=== PATIENT | female | born 1990 | race Caucasian/White ===

== ENCOUNTER 2019-09-17 01:30 | Inpatient (IN) ==
[2019-09-17] MEDS ORDERED: LACTATED RINGER'S 1,000 ML IV PRN (02:01)
[2019-09-17] MEDS ORDERED: OXYTOCIN 30 UNITS/500 ML BAG IV PRN ×2 (02:01→04:21)
[2019-09-17] MEDS ORDERED: METHYLERGONOVINE MALEATE 0.2 MG/ML AMP ONE (02:20)
[2019-09-17] MEDS ORDERED: OXYCODONE/ACETAMINOPHEN 5mg/325mg TAB PO PRN (02:37)
[2019-09-17] MEDS ORDERED: ACETAMINOPHEN 325 MG TAB PO PRN (02:37)
--- NOTE | 2019-09-17 02:39 | History & Physical Report ---
Date of Service September 17, 2019 Assessment & Plan (1) Precipitous delivery: She is complete and needing to push. Begin second stage. Fetus reassuring. History of Present Illness Chief Complaint: contractions, srom Primary Care Provider: NO PCP Patient is a 29yowf at 40 4/7 who presents to labor and delivery complaining of contractions starting around midnight. Brought her right in and she had srom for clear fluid upon arrival. Was initially checked and found to be 5cm but then progressed rapidly. has essentially been uncomplicated. Low-lying placenta resolved. labs--A-/ab-/ri/rprnr/hepb-/hiv-/afp nl/low risk panorama/ cf-/sma-/ gc/ct neg/ 16 week gtt nl/ 28 week gtt abnl with nl 2 hg/gbs neg Allergies Allergy/AdvReac Type Severity Reaction Status Date / Time amoxicillin Allergy Mild Hives Verified 09/15/19 09:27 Penicillins Allergy Mild Verified 09/15/19 09:27 Home Medications Home Medications Medication Instructions Recorded Confirmed Type 21-iron fu-folic acid 1 tab PO DAILY 02/11/19 09/17/19 History Patient History Medical History Ectopic Iron deficiency anemia Miscarriage (Resolved) Miscarriage Varicella Surgical History History of tonsillectomy and adenoidectomy History of wisdom tooth extraction S/P dilatation and curettage S/P wisdom tooth extraction Family History Father Diabetes Hypertension Grandfather (Maternal) Diabetes Grandfather (Paternal) Heart disease Grandmother (Paternal) Heart disease Sister Autism Social History Preferred Language: German Communication Ability: Effective 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 HAND [employer]AB[employer]IC C[employer]TER History no stds, no abnl paps. Physical Exam Constitutional: WD/WN, vitals as above Gastrointestinal (Abdomen): soft, gravid, nt Psychiatric: A+Ox3, euthymic affect Genitourinary: cx--c/c/+2 toco--q1-2min efm--category one Results & Data Vital Signs (Past 12 Hours) Vital Signs Temp Pulse Resp BP 09/17/19 02:35 101 H 119/90 09/17/19 01:44 36.5 C 99 H 20 136/96 Code Status & VTE Plan VTE Prophylaxis Plan VTE Prophylaxis will be ordered: No Coding Level of Care Code None Diagnoses Precipitous delivery O62.3
[2019-09-17 02:47] LABS: Hematocrit (blood only) 34.5 % (37-47); Hemoglobin 11.7 g/dL (12.0-16.0); Mean Corpuscular Hemoglobin 30.8 pg (25-34); Mean Corpuscular Volume 90.8 fL (80-100); Mean Platelet Volume 11.7 fL (7.4-10.4); Platelet Count 182 K/uL (130-400); RDW Coefficient of Variation 13.7 % (11.5-14.5); White Blood Count 13.68 K/uL (4.8-10.8)
[2019-09-17 02:48] LABS: Mean Corpuscular Hgb Conc 33.9 g/dL (32-36)
--- NOTE | 2019-09-17 02:49 | Delivery Summary ---
Vaginal Delivery Summary Date of Service September 17, 2019 Vaginal Delivery Summary Pre-operative Diagnosis: at 40 weeks precipitious labor Post-operative Diagnosis: same Procedure: second degree and clitoral laceration and repair EBL: 450cc Anesthesia: local infiltration of lidocaine Procedure: The patient pushed for about three contractions to deliver a viable female infant in marito position. The nose and mouth were bulb suctioned on the perineum, no nuchal cord, and the rest of the infant was then delivered without difficulty. The baby was vigorous. The nose and mouth were again bulb suctioned and the infant was placed in the maternal abdomen for drying and attention. Cord was clamped and cut at one minute of life. Cord blood and segment obtained. Placenta delivered spontaneous, intact with a three vessel cord. Cervix/sulci/rectum were intact. A second degree perineal laceration and infraclitoral laceration were repaired in the normal standard fashion. Hemostasis obtained with dilute pitocin and fundal massage. Apgars were 8/9. Mother and baby doing well at the end of the delivery. [facility] Vaginal Delivery Charge Vaginal Delivery Codes: 51130 global code for the antepartum, delivery, and post-
[2019-09-17] MEDS ORDERED: BENZOCAINE 20% AER SPR 82.5 GM CAN EXT PRN (04:21)
[2019-09-17] MEDS ORDERED: DIPHTHERIA/TETANUS/PERTUSSIS 0.5 ML SYR/VIAL IM ONE (04:21)
[2019-09-17] MEDS ORDERED: HYDROCORTISONE ACETATE 25 MG SUPP PR PRN (04:21)
[2019-09-17] MEDS ORDERED: bisacodyL 10 MG SUPP PR PRN (04:21)
[2019-09-17] MEDS ORDERED: SUPERCREAM 0.870% 15 GM JAR EXT PRN (04:21)
[2019-09-17] MEDS: IBUPROFEN 600 MG TAB PO PRN ×2 (05:07→19:38)
[2019-09-17] MEDS: PRENATAL VITAMIN 1 TAB PO SCH (08:32)
[2019-09-17] MEDS: DOCUSATE SODIUM 100 MG CAP PO SCH ×2 (08:32→19:38)
--- NOTE | 2019-09-18 07:43 | Obstetrical Progress Note ---
Date of Service September 18, 2019 PPD 1 min bleeding Assessment & Plan (1) Precipitous delivery: wishes home later today Subjective Ambulation: ambulating normally Voiding: no voiding problems Passing Gas:: Yes Diet Tolerance:: regular diet Lochia:: Small Current Pain Level(1-10): 1 no ext pain Physical Exam Gastrointestinal (Abdomen) normal bowel sounds, soft, nontender, no hepatosplenomegaly Genitourinary normal external appearance Results & Data Vital Signs (Past 12 Hours) Vital Signs Temp Pulse Resp BP 09/17/19 23:45 98.4 F 85 18 118/79
[2019-09-18] MEDS: IBUPROFEN 600 MG TAB PO PRN ×2 (07:50→15:23)
[2019-09-18] MEDS: DOCUSATE SODIUM 100 MG CAP PO SCH ×2 (07:50→19:55)
[2019-09-18] MEDS: PRENATAL VITAMIN 1 TAB PO SCH (07:51)
[2019-09-18] MEDS ORDERED: bisacodyL 5 MG TABEC PO SCH (20:00)
[2019-09-19] MEDS: IBUPROFEN 600 MG TAB PO PRN (00:25)
[2019-09-19 06:54] LABS: Hematocrit (blood only) 25.9 % (37-47); Hemoglobin 8.8 g/dL (12.0-16.0)
--- NOTE | 2019-09-19 06:56 | Obstetrical Progress Note ---
Date of Service September 19, 2019 Assessment & Plan (1) Encounter for care and examination after delivery: satisfactory course discharge to home follow up in 6 weeks Subjective Ambulation: ambulating normally Voiding: no voiding problems Passing Gas:: Yes Diet Tolerance:: regular diet Lochia:: Small Feeding Type:: breast feeding Review of Systems All systems reviewed & are unremarkable except as noted in HPI & below Physical Exam Constitutional WD/WN, vitals as above Psychiatric A+Ox3, euthymic affect Genitourinary OB Exam Abdomen: + fundal height Fundus: + firm and + relation to umbilicus (3 below) Results & Data Vital Signs (Past 12 Hours) Vital Signs Temp Pulse Resp BP Pulse Ox 09/19/19 00:00 98.6 F 89 18 129/84 09/18/19 19:50 98.6 F 89 16 131/88 99
[2019-09-19] MEDS: DOCUSATE SODIUM 100 MG CAP PO SCH (08:16)
[2019-09-19] MEDS: PRENATAL VITAMIN 1 TAB PO SCH (08:16)
== END 2019-09-19 14:35 | disposition home or self-care (01) | DRG 807 ==
LOC: OPB 01:30 → 4S1 01:32 → 4S2 04:39